=== PATIENT | female | born 1960 | race Caucasian/White ===

== ENCOUNTER 2016-10-21 07:57 | Emergency (ER) | payer OTHER ==
[~2016-10-21] VITALS: Ht 162.6 cm; Wt 81.7 kg
[~2016-10-21 07:57] MED LIST: AZITHROMYCIN250 MG PO; CARAFATE1 GM/10 ML PO; CEPHALEXIN500 MG PO; CHANTIX1 EACH PO; CHLORPROMAZINE25 MG PO; CLONAZEPAM1 MG PO; CLONAZEPAM2 MG PO; DELTASONE20 MG PO; DICLOFENAC SOD100 G1 TOP; DOXYCYCLINE HY100 MG PO; DRISDOL50000 UNIT PO; EPIPEN 2-P0.3 MG/0.3 IM; FLOVENT HFA12 GM INH; IBUPROFEN600 MG PO; IBUPROFEN800 MG PO; IPRAT-ALBUT 0.5-3 ML INH; KEFLEX500 MG PO; LEVAQUIN750 MG PO; MELOXICAM15 MG PO; METFORMIN HCL500 M1 PO; MOBIC15 MG PO; NICOTINE PATCH1 EAC1 TD; NORCO 5-325 TA1 EACH PO; OMEPRAZOLE20 MG PO; OSTERA TABLET1 EACH PO; PANTOPRAZOLE SO20 MG PO; PRAVASTATIN SOD20 MG PO; PRAVASTATIN SOD40 MG PO; PREDNISONE20 MG PO; PROMETHAZINE HC25 M1 PO; TRAMADOL HCL50 MG PO; VENTOLIN HFA18 GM INH
== END 2016-10-21 08:28 | disposition home or self-care (01) ==
LOC: ED 07:57
DX: Z00.8 Encounter for other general examination (principal)

== ENCOUNTER 2016-10-22 08:18 | Emergency (ER) | payer OTHER | END 2016-10-22 08:30 | disposition left against medical advice (07) | LOC: ED 08:18 | DX: Z53.21 Procedure and treatment not carried out due to patient leaving prior to being seen by health care provider (principal) ==

== ENCOUNTER 2017-03-22 13:19 | Emergency (ER) | payer OTHER ==
[~2017-03-22] VITALS: Ht 162.6 cm; Wt 81.7 kg
[2017-03-22] MEDS ORDERED: DOXYCYCLINE HY100 MG PO (13:35)
[2017-03-22] MEDS ORDERED: PREDNISONE20 MG PO (13:35)
[2017-03-24] MEDS ORDERED: DOXYCYCLINE HY100 MG PO (09:11)
[2017-03-24] MEDS ORDERED: KEFLEX500 MG PO (09:20)
[2017-03-24] MEDS ORDERED: ATROVENT HFA12.9 GM INH (09:20)
== END 2017-03-22 14:27 | disposition home or self-care (01) ==
LOC: ED 13:19
DX: J44.1 Chronic obstructive pulmonary disease with (acute) exacerbation (principal); M81.0 Age-related osteoporosis without current pathological fracture; Z90.710 Acquired absence of both cervix and uterus; Z88.5 Allergy status to narcotic agent; Z91.030 Bee allergy status; Z79.899 Other long term (current) drug therapy
CPT/HCPCS: 94640; 99283; J7512

== ENCOUNTER 2017-06-10 09:33 | Emergency (ER) | payer OTHER ==
[~2017-06-10] VITALS: Ht 162.6 cm; Wt 81.7 kg
--- OUTSIDE RECORDS SUMMARY | ~2017-06-10 | XMS | Clinical Summary ---
Demographics + + + | Address | [address] | | | [place] [address] | + + + | Home Phone | | + + + | Preferred Language | Unknown | + + + | Marital Status | Single | + + + | Muslim Affiliation | Unknown | + + + | Race | Unknown | + + + | Ethnic Group | Unknown | + + + Author + + + | Author | [facility] | | | and [place] | + + + | Organization | [facility] | | | and [place] | + + + | Address | Unknown | + + + | Phone | Unavailable | + + + Support + + +---------+ + | Name | Relationship | Address | Phone | + + +---------+ + | Sumaya Ridley | ECON | Unknown | | + + +---------+ + Care Team Providers + +------+ + | Care Vacuum Spindle Sander Name | Role | Phone | + +------+ + | Chel Sweeney NP | PP | Unavailable | + +------+ + Allergies + + + + + + | Active Allergy | Reactions | Severity | Noted | Comments | | | | | Date | | + + + + + + | Bee Venom | Anaphylaxis | High | 04/30/19 | | | | | | 16 | | + + + + + + Current Medications + + +---------+---------+------+------+-------+ | Prescription | Sig. | Disp. | Refills | Star | End | Statu | | | | | | t | Date | s | | | | | | Date | | | + + +---------+---------+------+------+-------+ | pravastatin | Take 40 mg by mouth | | 0 | 12/0 | | Activ | | (PRAVACHOL) 40 MG | nightly. | | | 7/20 | | e | | tablet | | | | 15 | | | + + +---------+---------+------+------+-------+ | ibuprofen | Take 800 mg by mouth | | 0 | 12/0 | | Activ | | (ADVIL,MOTRIN) 800 | every 6 hours. | | | 7/20 | | e | | MG tablet | | | | 15 | | | + + +---------+---------+------+------+-------+ | clonazePAM | Take 2 mg by mouth 2 | | 0 | 12/0 | | Activ | | (KLONOPIN) 2 MG | times daily. | | | 7/20 | | e | | tablet | | | | 15 | | | + + +---------+---------+------+------+-------+ | ergocalciferol | Take one capsule | | 0 | 02/0 | | Activ | | (VITAMIN D-2) 50,000 | weekly | | | 20 | | e | | units capsule | | | | 16 | | | + + +---------+---------+------+------+-------+ | pantoprazole | Take 1 tablet by | 30 | 5 | 04/2 | | Activ | | (PROTONIX) 20 mg | mouth every morning | tablet | | /20 | | e | | tablet | (before breakfast). | | | 16 | | | + + +---------+---------+------+------+-------+ | fluticasone | Inhale 1 puff into | 1 | 11 | 04/2 | | Activ | | (FLOVENT HFA) 110 | the lungs 2 times | Inhaler | | 9/20 | | e | | mcg/puff inhaler | daily. | | | 16 | | | + + +---------+---------+------+------+-------+ | albuterol 90 | Inhale 2 puffs into | 1 | 11 | 04/2 | | Activ | | mcg/puff inhaler | the lungs every 4 | Inhaler | | 9/20 | | e | | | hours as needed for | | | 16 | | | | | Wheezing or | | | | | | | | Shortness of Breath. | | | | | | + + +---------+---------+------+------+-------+ | nicotine | Apply new patch | 28 | 0 | 04/2 | | Activ | | (NICODERM) 14 mg/24 | every 24 hours to | patch | | 9/20 | | e | | hr | nonhairy, clean, dry | | | 16 | | | | | skin on upper body | | | | | | | | or upper arm; each | | | | | | | | patch should be | | | | | | | | applied to a | | | | | | | | different site | | | | | | + + +---------+---------+------+------+-------+ Active Problems + + + | Problem | Noted Date | + + + | Granulomatous lung disease (HCC) | 07/05/2015 | + + + | Emphysema of lung (HCC) | 07/05/2015 | + + + | Tobacco abuse | 07/05/2015 | + + + | GERD (gastroesophageal reflux disease) | | + + + | Hyperlipidemia | | + + + | PTSD (post-traumatic stress disorder) | | + + + + + | Overview: with anxiety | + + + +---+ | Hypovitaminosis D | | + +---+ | Osteoarthritis | | + +---+ Family History + + +------+ + | Medical History | Relation | Name | Comments | + + +------+ + | Diabetes | Father | | | + + +------+ + | Lung cancer | Maternal | | | | | Grandmoth | | | | | er | | | + + +------+ + | Diabetes | Mother | | | + + +------+ + | High blood pressure | Mother | | | + + +------+ + | Ovarian cancer | Paternal | | | | | Grandmoth | | | | | er | | | + + +------+ + | Obesity | Sister | | | + + +------+ + | Obesity | Sister | | | + + +------+ + | Asthma | Son | | childhood | + + +------+ + + +------+ + + | Relation | Name | Status | Comments | + +------+ + + | Father | | | some type of muscle disease | | | | (Age | | | | | 79) | | + +------+ + + | Maternal Grandmother | | | | + +------+ + + | Mother | | Alive | | + +------+ + + | Paternal Grandmother | | | | + +------+ + + | Sister | | Alive | | + +------+ + + | Sister | | Alive | | + +------+ + + | Son | | Alive | | + +------+ + + Social History + + + +--------+ + | Tobacco Use | Types | Packs/Day | Years | Date | | | | | Used | | + + + +--------+ + | Current Every Day | Cigarettes | 0.8 | 43 | Started: 03/08/1971 | | Smoker | | | | | + + + +--------+ + + +---+---+---+ | Smokeless Tobacco: | | | | | Never Used | | | | + +---+---+---+ + + | Tobacco Cessation: Ready to Quit: No; Counseling Given: No | | Comments: currently 5-10 cigs/day | + + + + +---------+ + | Alcohol Use | Drinks/We | oz/Week | Comments | | | ek | | | + + +---------+ + | No | 0 | 0.0 | | | | Standard | | | | | drinks or | | | | | | | | | | equivalen | | | | | t | | | + + +---------+ + + + + | Sex Assigned at | Date Recorded | | | | + + + | Not on file | | + + + Last Filed Vital Signs + + + + | Vital Sign | Reading | Time Taken | + + + + | Blood Pressure | 94/60 | 07/05/2015 1514 PDT | + + + + | Pulse | 92 | 07/05/20151513 PDT | + + + + | Temperature | - | - | + + + + | Respiratory Rate | - | - | + + + + | Oxygen Saturation | 96% | 07/05/20151513 PDT | + + + + | Inhaled Oxygen | - | - | | Concentration | | | + + + + | Weight | 84.8 kg (187 lb) | 07/05/20151513 PDT | + + + + | Height | 162.6 cm (5' 4") | 07/05/20151513 PDT | + + + + | Body Mass Index | 32.1 | 07/05/20151513 PDT | + + + + Plan of Treatment + + + + + | Health Maintenance | Due Date | Last Done | Comments | + + + + + | Hepatitis C | | | | | Screening | 1 | | | + + + + + | Vaccine: | | | | | Dtap/Tdap/Td (1 - | 0 | | | | Tdap) | | | | + + + + + | Vaccine: | | | | | Pneumococcal 19-64 | 0 | | | | (PPSV23 only) Medium | | | | | Risk (1 of 1 - | | | | | PPSV23) | | | | + + + + + | CERVICAL CANCER | | | | | SCREENING (PAP EVERY | 2 | | | | 3 YEARS 21-64 ) | | | | + + + + + | BREAST CANCER | | | | | SCREENING (MAMM Q2 | 1 | | | | YEARS 50-74) | | | | + + + + + | COLON CANCER | | | | | SCREENING | 1 | | | | (COLONOSCOPY EVERY | | | | | 10 YEARS 50-75) | | | | + + + + + | Vaccine: Influenza | | | | | (#1) | 7 | | | + + + + + Results Not on filefrom Last 3 Months Insurance + +--------+ +--------+ +---------+ | Payer | Benefi | Subscriber | Type | Phone | Address | | | t Plan | ID | | | | | | / | | | | | | | Group | | | | | + +--------+ +--------+ +---------+ | [employer] | [employer] | [id number] | Medica | [phone]- | | | MEDICAID HMO | HEALTH | | id | [id number] | | | | [place] | | | | | | [place] | | | | | + +--------+ +--------+ +---------+ + +--------+ +--------+ + + | Guarantor Name | Accoun | Relation to | Date | Phone | Billing Address | | | t Type | Patient | of | | | | | | | | | | + +--------+ +--------+ + + | AYESHA RIDLEY | Person | Self [birth year] Home: | [address] | | | [place] | | 1960 | [phone] | [address] [place], | | | [place] | | | [phone] | [place] [phone] | + +--------+ +--------+ + +
--- OUTSIDE RECORDS SUMMARY | ~2017-06-10 | XMS | Clinical Summary ---
Demographics + + + | Address | [address] | | | [place] [address] | + + + | Home Phone | | + + + | Preferred Language | Unknown | + + + | Marital Status | Single | + + + | Gnosticism Affiliation | Unknown | + + + | Race | Unknown | + + + | Ethnic Group | Unknown | + + + Author + + + | Author | [facility] | | | and [place] | + + + | Organization | [facility] | | | and [...] Team Providers + +------+ + | Care Wad Impregnator Name | Role | Phone | + [...] | | | [place] | | | [phone] | [place] [phone] | + +--------+ +--------+ + +
[~2017-06-10 09:33] MED LIST changes: +ATROVENT HFA12.9 GM INH
[2017-06-10] MEDS ORDERED: ZITHROMAX250 MG PO (10:12)
== END 2017-06-10 10:28 | disposition home or self-care (01) ==
LOC: ED 09:33
DX: J20.9 Acute bronchitis, unspecified (principal); F41.9 Anxiety disorder, unspecified; J44.9 Chronic obstructive pulmonary disease, unspecified; F17.200 Nicotine dependence, unspecified, uncomplicated; Z88.5 Allergy status to narcotic agent; Z91.030 Bee allergy status; Z79.899 Other long term (current) drug therapy
CPT/HCPCS: 99283

== ENCOUNTER 2022-04-13 13:43 | Emergency (ER) | payer MEDICARE, OTHER ==
[~2022-04-13] VITALS: Ht 162.6 cm; Wt 89.8 kg
--- NOTE | ~2022-04-13 | EKG ---
[facility] [address] [facility] [place], [place] [address] Draft EKG completed, results pending confirmation PATIENT NAME: ARELY CHRISTIANSONWAYNE CORONA Electrocardiogram DATE OF : 62 PHYSICIAN: PRELIMINARY REPORT #: [id number] REPORT IS CONFIDENTIAL AND NOT TO BE RELEASED WITHOUT AUTHORIZATION
[~2022-04-13 13:43] MED LIST changes: +ZITHROMAX250 MG PO
--- OUTSIDE RECORDS SUMMARY | 2022-04-13 13:46 | XMS ---
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 Karma has no Care Guidelines for this patient. Care History Social 06/10/2017 [facility] Care Recommendation: This patient has had 5 or more Emergency Department visits in the last 12 months. Patient requires education on the scope and purpose of the ED as an acute care provider not a Primary Care Provider and should not be utilized for chronic conditions. If patient returns to ED please contact Community Health WorkerMaddison at [phone]. These are guidelines and the provider should exercise clinical judgment when providing care E.D. VISIT COUNT (12 MO.) [address] TOTAL 4 NOTE: Visits indicate total known visits. ED/UCC VISIT TRACKING (12 MO.) 04/13/2022 13:44 [facility] [place] TYPE: Emergency COMPLAINT: - FLU SYMPTOMS, COUGH 11/19/2021 10:04 [facility] [place] TYPE: Emergency DIAGNOSES: 05176. repeat covid test 28925. COVID-19 11/14/2021 01:33 [facility] [place] TYPE: Emergency DIAGNOSES: 89829. cough/chest congestion 13962. Dyspnea, unspecified 27674. COVID-19 11/12/2021 08:09 [facility] [place] TYPE: Emergency DIAGNOSES: 82471. Dental pain 79668. Other specified disorders of teeth and supporting structures INPATIENT VISIT TRACKING (12 MO.) No inpatient visits to display in this time frame [email or web address]
[2022-04-13] MEDS ORDERED: DEXLANSOPRAZOLE30 MG PO (14:25)
[2022-04-13] MEDS ORDERED: METHYLPREDNISOLO4 M1 PO (16:42)
[2022-04-13] MEDS ORDERED: ZITHROMAX250 MG PO (16:42)
[2022-04-13] MEDS ORDERED: IPRAT-ALBUT 0.5-3 ML INH (16:43)
== END 2022-04-13 16:54 | disposition home or self-care (01) ==
LOC: ED 13:43
DX: J44.1 Chronic obstructive pulmonary disease with (acute) exacerbation (principal); F17.200 Nicotine dependence, unspecified, uncomplicated; Z20.822 Contact with and (suspected) exposure to COVID-19; Z91.030 Bee allergy status; Z88.5 Allergy status to narcotic agent; Z88.8 Allergy status to other drugs, medicaments and biological substances; Z79.899 Other long term (current) drug therapy
CPT/HCPCS: 36415; 71045; 80053; 81001; 83690; 83735; 84703; 85025; 87502; 93005; 93010; 96374; 96375; 96376; 99284-25; C9803; J2405; J2930; U0003

== ENCOUNTER 2023-07-30 09:14 | Emergency (ER) | payer MEDICARE, OTHER ==
[~2023-07-30] VITALS: Ht 162.6 cm; Wt 89.4 kg
[~2023-07-30 09:14] MED LIST changes: +AMOX TR-K CLV1 EAC1 PO; +CEPHALEXIN500 M1 PO; +CYCLOBENZAPRINE10 MG PO; +DEXLANSOPRAZOLE30 MG PO; +METHYLPREDNISOLO4 M1 PO; +OXYCODONE HCL5 MG PO; +PANTOPRAZOLE SO40 MG PO; +SUCRALFATE1 GM PO
[2023-07-30] MEDS ORDERED: ALBUTEROL SULFATE 0.042% 1.25 MG/3 ML VIAL INH ONE (09:45)
[2023-07-30 09:55] LABS: PH, VENOUS 7.459 (7.31-7.41)
[2023-07-30 10:22] LABS: ALBUMIN 3.7 g/dL (3.4-5.0); ALBUMIN/GLOBULIN RATIO 1.03 (1.1-2.4); ALKALINE PHOSPHATASE 89 U/L (46-116); ALT (SGPT) 20 U/L (14-59); ANION GAP 16.4 (7-21); AST (SGOT) 19 U/L (15-37); BILIRUBIN, TOTAL 0.4 ng/dL (0.2-1.0); BUN/CREATININE RATIO 15.38 (6.0-28.6); CALCIUM 8.9 mg/dL (8.5-10.1); CARBON DIOXIDE 26 mmol/L (21-32); CHLORIDE 103 mmol/L (98-107); CREATININE, SERUM 0.78 mg/dL (0.55-1.02); GLOMERULAR FILTRATION RATE,EST 86 mL/min (>60); POTASSIUM 4.4 mmol/L (3.5-5.1); PROTEIN, TOTAL 7.3 g/dL (6.4-8.2); UREA NITROGEN 12 mg/dL (7-18)
[2023-07-30 10:24] LABS: BASOPHILS 0.7 % (0-2); EOSINOPHILS 0.8 % (0-6); HEMATOCRIT 42.5 % (35.0-50.0); HEMOGLOBIN 14.5 g/dL (12.0-18.0); LYMPHOCYTES 34.6 % (24-44); MCH 31.1 (27-36); MCHC 34.1 g/dl (30-36); MCV 91.4 fl (81-99); MONOCYTES 5.4 % (0-12); NEUTROPHILS 58.5 % (39-80); PLATELET COUNT 274 K/uL (140-440); RBC 4.65 M/ul (4.3-5.7); RDW 12.1 (10.5-15.0)
[2023-07-30 11:13] VITALS: BP 115/80
--- NOTE | 2023-07-31 19:07 | EKG ---
[facility] [address] [facility] [place], [place] [address] Signed Normal sinus rhythm Q-wave lead III When compared with ECG of 10-JUL-2023 04:59, Confirmed by Bradley Linder ([id number]) on 07/31/2023 7:07:08 PM Electronically Signed By: BRADLEY LINDER MD 07/31/23 1907 PATIENT NAME: MIGUEL CHRISTIANSON Electrocardiogram DATE OF : 62 PHYSICIAN: BRADLEY LINDER MD REPORT #: [id number] REPORT IS CONFIDENTIAL AND NOT TO BE RELEASED WITHOUT AUTHORIZATION
== END 2023-07-30 11:14 | disposition home or self-care (01) ==
LOC: ED 09:14
PROVIDERS: Emergency Medicine
DX: R06.02 Shortness of breath (principal); J44.9 Chronic obstructive pulmonary disease, unspecified; F17.200 Nicotine dependence, unspecified, uncomplicated; Z88.5 Allergy status to narcotic agent; Z91.030 Bee allergy status; Z79.899 Other long term (current) drug therapy
CPT/HCPCS: 36415; 71046; 80053; 82803; 83880; 84484; 85025; 93005; 93010; 99285-25

== ENCOUNTER 2023-12-10 00:14 | Emergency (ER) | payer MEDICARE, OTHER ==
[~2023-12-10] VITALS: Ht 162.6 cm; Wt 88.5 kg
[2023-12-10] MEDS ORDERED: AZITHROMYCIN 250 MG HOME.PACK PO ONE (02:45)
[2023-12-10 02:50] VITALS: BP 141/76
== END 2023-12-10 02:50 | disposition home or self-care (01) ==
LOC: ED 00:14
DX: J44.1 Chronic obstructive pulmonary disease with (acute) exacerbation (principal); F17.200 Nicotine dependence, unspecified, uncomplicated; Z88.5 Allergy status to narcotic agent; Z88.8 Allergy status to other drugs, medicaments and biological substances; Z91.030 Bee allergy status; Z79.899 Other long term (current) drug therapy
CPT/HCPCS: 71045; 99284-25

== ENCOUNTER 2024-01-30 08:25 | Emergency (ER) | payer MEDICARE, OTHER ==
[~2024-01-30] VITALS: Ht 162.6 cm; Wt 87.3 kg
[2024-01-30] MEDS ORDERED: FAMOTIDINE20 MG PO (09:37)
[2024-01-30] MEDS ORDERED: DIFLUCAN100 MG PO (09:46)
[2024-01-30 09:49] VITALS: BP 126/86
== END 2024-01-30 09:49 | disposition home or self-care (01) ==
LOC: ED 08:25
DX: B37.0 Candidal stomatitis (principal); M81.0 Age-related osteoporosis without current pathological fracture; J44.89 Other specified chronic obstructive pulmonary disease; F17.200 Nicotine dependence, unspecified, uncomplicated; Z98.890 Other specified postprocedural states; Z91.030 Bee allergy status; Z88.5 Allergy status to narcotic agent; Z88.8 Allergy status to other drugs, medicaments and biological substances; Z79.899 Other long term (current) drug therapy
CPT/HCPCS: 99283

== ENCOUNTER 2024-03-05 08:31 | Emergency (ER) | payer MEDICARE, OTHER ==
[~2024-03-05] VITALS: Ht 162.6 cm; Wt 86.1 kg
[~2024-03-05 08:31] MED LIST changes: +DIFLUCAN100 MG PO; +FAMOTIDINE20 MG PO
[2024-03-05 09:03] VITALS: BP 149/85
== END 2024-03-05 09:04 | disposition home or self-care (01) ==
LOC: ED 08:31
DX: R22.1 Localized swelling, mass and lump, neck (principal); J44.89 Other specified chronic obstructive pulmonary disease; F17.200 Nicotine dependence, unspecified, uncomplicated; Z88.5 Allergy status to narcotic agent; Z88.8 Allergy status to other drugs, medicaments and biological substances; Z91.030 Bee allergy status; Z79.899 Other long term (current) drug therapy
CPT/HCPCS: 99283

== ENCOUNTER 2024-03-27 13:10 | Emergency (ER) | payer MEDICARE, OTHER ==
[~2024-03-27] VITALS: Ht 162.6 cm; Wt 88.8 kg
[2024-03-27] MEDS ORDERED: ASPIRIN 81 MG CHEW PO ONE (13:30)
[2024-03-27] MEDS ORDERED: IBUPROFEN800 MG PO (13:39)
[2024-03-27] MEDS ORDERED: KETOROLAC TROMETHAMINE 30 MG/ML VIAL IV ONE (13:45)
[2024-03-27 13:52] LABS: HEMATOCRIT 44.5 % (35.0-50.0); HEMOGLOBIN 15.3 g/dL (12.0-18.0); MCHC 34.4 g/dl (30-36); MCV 89.9 fl (81-99); PLATELET COUNT 247 K/uL (140-440); RBC 4.95 M/ul (4.3-5.7); RDW 13.8 (10.5-15.0)
[2024-03-27 14:07] LABS: EOSINOPHILS, MANUAL DIFF 1; LYMPHOCYTES, MANUAL DIFF 52; MONOCYTES, MANUAL DIFF 2; NEUTROPHILS, MANUAL DIFF 45
[2024-03-27 14:09] LABS: ALBUMIN 3.7 g/dL (3.4-5.0); ALBUMIN/GLOBULIN RATIO 0.97 (1.1-2.4); ALKALINE PHOSPHATASE 90 U/L (46-116); ALT (SGPT) 28 U/L (14-59); ANION GAP 11.4 (7-21); AST (SGOT) 22 U/L (15-37); BILIRUBIN, TOTAL 0.3 ng/dL (0.2-1.0); CALCIUM 8.6 mg/dL (8.5-10.1); CARBON DIOXIDE 31 mmol/L (21-32); CHLORIDE 100 mmol/L (98-107); CREATININE, SERUM 0.88 mg/dL (0.55-1.02); GLOMERULAR FILTRATION RATE,EST 74 mL/min (>60); POTASSIUM 3.4 mmol/L (3.5-5.1); PROTEIN, TOTAL 7.5 g/dL (6.4-8.2); UREA NITROGEN 14 mg/dL (7-18)
[2024-03-27 14:30] VITALS: BP 123/75
[2024-03-27] MEDS ORDERED: HYDROCODONE/ACETA 5/325 TAB PO ONE (15:00)
[2024-03-27] MEDS ORDERED: HYDROCODON-ACE1 EA10 PO (15:03)
[2024-03-27] MEDS ORDERED: ONDANSETRON ODT8 MG PO (15:13)
[2024-03-27] MEDS ORDERED: ONDANSETRON 4 MG TAB ODT SL ONE (15:15)
--- NOTE | 2024-03-28 18:27 | EKG ---
[facility] [address] [facility] [place], [place] [address] Signed Sinus tachycardia Inferior infarct , age undetermined Abnormal ECG No previous ECGs available Confirmed by Kerrie Mitchell MD ([id number]) on 03/28/2024 6:27:28 PM Electronically Signed By: KERRIE MITCHELL MD 03/28/241826 PATIENT NAME: MIGUEL CHRISTIANSON Electrocardiogram DATE OF : 62 PHYSICIAN: KERRIE MITCHELL MD REPORT #: [id number] REPORT IS CONFIDENTIAL AND NOT TO BE RELEASED WITHOUT AUTHORIZATION
== END 2024-03-27 15:16 | disposition home or self-care (01) ==
LOC: ED 13:10
PROVIDERS: Emergency Medicine
DX: R07.9 Chest pain, unspecified (principal); J44.89 Other specified chronic obstructive pulmonary disease; F17.200 Nicotine dependence, unspecified, uncomplicated; Z79.899 Other long term (current) drug therapy; Z88.5 Allergy status to narcotic agent; Z88.8 Allergy status to other drugs, medicaments and biological substances; Z91.030 Bee allergy status
CPT/HCPCS: 36415; 71045; 80053; 83735; 84484; 85025; 85379; 93005; 93010; 96374; 99285-25; A9270; J1885

== ENCOUNTER 2024-07-28 08:38 | Emergency (ER) | payer MEDICARE, OTHER ==
[~2024-07-28] VITALS: Ht 162.6 cm; Wt 87.5 kg
[~2024-07-28 08:38] MED LIST changes: +HYDROCODON-ACE1 EA10 PO; +ONDANSETRON ODT8 MG PO
[2024-07-28 09:14] LABS: BILIRUBIN, URINE NEGATIVE (negative); BLOOD/HGB, URINE NEGATIVE (Negative); KETONE, URINE TRACE (Negative); LEUK ESTERASE, URINE NEGATIVE (negative); NITRITE, URINE NEGATIVE (negative); PH, URINE 6.5 (5-7)
[2024-07-28] MEDS ORDERED: ondansetron HCL 4 MG/2 ML VIAL IV ONE (09:15)
[2024-07-28] MEDS ORDERED: MORPHINE SULFATE 4 MG/ML VIAL IV ONE (09:15)
[2024-07-28] MEDS ORDERED: SODIUM CHLORIDE 0.9% 1,000 ML IV ONE (09:15)
[2024-07-28 09:20] LABS: EPITHELIAL CELLS, URINE SQUAMOUS 3+ /lpf (0-1+)
[2024-07-28 09:21] LABS: BACTERIA, URINE NONE SEEN /hpf (negative); CASTS, URINE HYALINE 1+ \\lpf; COLLECTION TYPE, URINE CLEAN CATCH; CRYSTALS, URINE NONE SEEN (0-1+); RED BLOOD CELLS, URINE 0-1 /hpf (0-5); REFLEX CULTURE, URINE No (No)
[2024-07-28 09:24] LABS: BASOPHILS 0.6 % (0.1-1.2); EOSINOPHILS 1.6 % (0.7-5.8); HEMATOCRIT 44.3 % (34.1-44.9); HEMOGLOBIN 14.8 g/dL (11.2-15.7); LYMPHOCYTES 34.1 % (19.3-51.7); MCH 30.8 PG (25.6-32.2); MCHC 33.4 g/dL (32.2-35.5); MCV 92.3 fL (79.4-94.8); NEUTROPHILS 57.3 % (34.0-71.1); PLATELET COUNT 255 K/uL (182-369)
[2024-07-28 09:30] LABS: AMPHETAMINES, URINE NEGATIVE (NEGATIVE); BARBITURATES, URINE NEGATIVE (NEGATIVE); BENZODIAZEPINE, URINE NEGATIVE (NEGATIVE); BUPRENORPHINE, URINE NEGATIVE (NEGATIVE); CANNABINOID, URINE POSITIVE (NEGATIVE); COCAINE, URINE NEGATIVE (NEGATIVE); ECSTASY, URINE NEGATIVE (NEGATIVE); FENTANYL, URINE NEGATIVE (NEGATIVE); METHADONE, URINE NEGATIVE (NEGATIVE); OPIATES, URINE NEGATIVE (NEGATIVE); OXYCODONE, URINE NEGATIVE (NEGATIVE); PHENCYCLIDINE, URINE NEGATIVE (NEGATIVE)
[2024-07-28 09:33] LABS: INR 0.98 (0.80-1.30); PROTIME 12.4 Sec (11.2-14.2)
[2024-07-28 09:44] LABS: ALBUMIN 3.8 g/dL (3.4-5.0); ALBUMIN/GLOBULIN RATIO 1.09 (1.1-2.4); ALCOHOL, MEDICAL <3 ng/dL (<3); ALKALINE PHOSPHATASE 87 U/L (46-116); ALT (SGPT) 21 U/L (14-59); ANION GAP 11.3 (7-21); AST (SGOT) 18 U/L (15-37); BILIRUBIN, TOTAL 0.4 mg/dL (0.2-1.0); BUN/CREATININE RATIO 11.11 (6.0-28.6); CALCIUM 8.9 mg/dL (8.5-10.1); CARBON DIOXIDE 32 mmol/L (21-32); CHLORIDE 103 mmol/L (98-107); CREATININE, SERUM 0.72 mg/dL (0.55-1.02); GLOMERULAR FILTRATION RATE,EST 94 mL/min (>60); POTASSIUM 4.3 mmol/L (3.5-5.1); PROTEIN, TOTAL 7.3 g/dL (6.4-8.2); UREA NITROGEN 8 mg/dL (7-18)
[2024-07-28] MEDS ORDERED: KETOROLAC TROMETHAMINE 15 MG/ML VIAL IM ONE (10:15)
[2024-07-28 10:53] VITALS: BP 135/95
--- NOTE | 2024-07-28 22:31 | EKG ---
[facility] [address] [facility] [place] [address] Signed Normal sinus rhythm Possible Inferior infarct (cited on or before 05-DEC-2023) Abnormal ECG When compared with ECG of 27-MAR-2024 13:13, No significant change was found Confirmed by Fanny Dempsey MD () on 07/28/2024 10:31:18 PM Electronically Signed By: FANNY DEMPSEY MD 07/28/242230 PATIENT NAME: MIGUEL CHRISTIANSON Electrocardiogram DATE OF : 62 PHYSICIAN: FANNY DEMPSEY MD REPORT #: [id number] REPORT IS CONFIDENTIAL AND NOT TO BE RELEASED WITHOUT AUTHORIZATION
== END 2024-07-28 10:52 | disposition home or self-care (01) ==
LOC: ED 08:38
PROVIDERS: Emergency Medicine
DX: J38.7 Other diseases of larynx (principal); G89.29 Other chronic pain; M54.2 Cervicalgia; J44.89 Other specified chronic obstructive pulmonary disease; F17.200 Nicotine dependence, unspecified, uncomplicated; Z79.899 Other long term (current) drug therapy; Z91.030 Bee allergy status; Z88.5 Allergy status to narcotic agent; Z88.6 Allergy status to analgesic agent
CPT/HCPCS: 36415; 70450; 70486; 71045; 80053; 80307; 81001; 83690; 84484; 85025; 85610; 93005; 93010; 96372; 99285-25; G0480; J1885

== ENCOUNTER 2024-09-07 14:02 | Emergency (ER) | payer MEDICARE, OTHER ==
[~2024-09-07] VITALS: Ht 162.6 cm; Wt 87.5 kg
[2024-09-07] MEDS ORDERED: KETOROLAC TROMETHAMINE 30 MG/ML VIAL IM ONE (17:00)
[2024-09-07 17:42] VITALS: BP 144/74
== END 2024-09-07 17:42 | disposition home or self-care (01) ==
LOC: ED 14:02
DX: M79.605 Pain in left leg (principal); M79.604 Pain in right leg; M79.642 Pain in left hand; M79.641 Pain in right hand; J44.89 Other specified chronic obstructive pulmonary disease; F17.200 Nicotine dependence, unspecified, uncomplicated; Z79.899 Other long term (current) drug therapy; Z91.030 Bee allergy status; Z88.5 Allergy status to narcotic agent; Z88.8 Allergy status to other drugs, medicaments and biological substances
CPT/HCPCS: 96372; 99283; J1885

== ENCOUNTER 2025-02-16 12:16 | Emergency (ER) | payer MEDICARE, OTHER ==
[~2025-02-16] VITALS: Ht 162.6 cm; Wt 85.6 kg
[2025-02-16] MEDS ORDERED: OXYCODONE HCL 5 MG TAB PO ONE (13:00)
[2025-02-16] MEDS ORDERED: fentaNYL citrate 100 MCG/2 ML VIAL IV ONE (15:45)
[2025-02-16] MEDS ORDERED: KETAMINE in NS 50 MG/5 ML SYR IV ONE (15:45)
[2025-02-16 17:51] VITALS: BP 133/73
== END 2025-02-16 17:53 | disposition home or self-care (01) ==
LOC: ED 12:16
DX: T81.31XA Disruption of external operation (surgical) wound, not elsewhere classified, initial encounter (principal); J44.9 Chronic obstructive pulmonary disease, unspecified; F17.200 Nicotine dependence, unspecified, uncomplicated; Z88.8 Allergy status to other drugs, medicaments and biological substances; Z91.030 Bee allergy status
CPT/HCPCS: 96374; 96375; 99282-25; A9270; J2405; J3010; J3490